=== PATIENT | male | born 1955 | race Two or more races ===

== ENCOUNTER 2024-11-28 15:47 | Emergency (ER) | payer BC, MEDICARE, SELFPAY ==
[2024-11-28 16:28] VITALS: BP 161/95; PULSE 105; RESP 18; TEMP 37.1; O2SAT 97; BMI 28.1
--- NOTE | 2024-11-28 16:52 | EDNOTE_ITS ---
<Statement entered by Laney Mcnair MD - 12/06/24 04:32> As co-signing physician, I was present and available for consult prn. I concur with the plan and care as documented by the midlevel provider. ED General RME/HPI General Chief complaint: General Adult/Misc Complain Stated complaint: REQUEST PAIN SHOT IN LOWER BACK FOR PAIN Time Seen by Provider: 11/28/24 16:28 Arrival date/time: 11/28/24 15:47 This is a 69-year-old male that comes with complaints of lower back pain. Patient states his pain is not new. Patient reports that this pain is chronic. Patient reports that he was recently seen by his pain management doctor but they did not put the prescriptions for his chronic pain medications and. Patient states that he did not have a fall and this is not new pain this is just the pain he usually gets. He came to the emergency room today for a pain shot and he will follow-up with his pain management doctor. Pt denies loss of bowel or bladdder control Related Data Home Medications ?Medication ?Instructions ?Recorded ?Confirmed hydrocodone 5 mg-acetaminophen 325 1 tab PO DAILY 07/0509/21/22 mg tablet ([place]) oxycodone myristate 18 mg capsule 18 mg PO BID 1 09/21/22 sprinkle extended release 12hr(DON'T CRUSH) (Xtampza ER) tamsulosin 0.4 mg capsule 0.4 mg PO QHS 03/16/2109/21 Previous Rx's ?Medication ?Instructions ?Recorded diclofenac sodium 1 % topical gel 2 g topical QID #30 grams 08/25/22 apixaban 5 mg (74 tabs) tablets in 5 mg PO BID Pulmona ry embolism #74 09/24/22 a dose pack (Eliquis DVT-PE Treat tabs 30D Start) Allergies Allergy/AdvReac Type Severity Reaction Status Date / Time ibuprofen Allergy Intermediate IRRITATE Verified 11/28/24 15:49 STOMACH Review of Systems Review of Systems Systems Reviewed: All systems reviewed, normal except as documented Past Medical History Past Medical History CARDIAC: Positive Cardiac Disorders and Hypertension; Negative Congestive Heart Failure RESPIRATORY: Negative Chronic Obstructive Pulmonary Disease (COPD) or Asthma GENITOURINARY: Negative Renal Disease MUSCULOSKELETAL: Positive Arthritis ENDOCRINE: Negative Diabetes Mellitus Type 1 or Diabetes Mellitus Type 2 HEMATOLOGIC: Negative Sickle Cell Disease OTHER HISTORY: Positive Hospitalization and Falls (Last 09/14/2022); Negative Blood Transfusions or Anesthesia Reactions Social History SMOKING STATUS: Never smoker SUBSTANCE USE: does not use ED Exam General General appearance: Present alert and in no apparent distress Head Head exam: Present atraumatic Eye Eye exam: Present normal appearance, PERRL and EOMI ENT ENT exam: Present normal exam, normal oropharynx and mucous membranes moist Neck Neck exam: Present normal inspection, full ROM and trachea midline Chest Chest inspection: Present normal inspection and symmetric chest wall rise Respiratory Respiratory exam: Present normal lung sounds bilaterally Cardiovascular Cardiovascular exam: Present regular rate and other (cap refill) Abdominal Exam Abdominal exam: Present soft Extremities Exam Extremities exam: Present normal inspection and full ROM Back Exam Back exam: Present normal inspection and full ROM Neurological Exam Neurological exam: Present alert, oriented X3 and CN II-XII intact Psychiatric Psychiatric exam: Present normal affect and normal mood Skin Skin exam: Present warm, dry, intact and normal color Course Quality Measures none Orders Category Date Time Status HYDROmorphone INJ [Dilaudid Inj] Med 11/28/24 16:50 Discontinued 1 mg IM X1 ONE Ketorolac Inj [Toradol Inj] Med 11/28/24 16:51 Discontinued 30 mg IM X1 ONE Metoclopramide Inj [Reglan Inj] Med 11/28/24 16:50 Discontinued 10 mg IM X1 ONE Vital Signs Vital signs: Vital Signs Temperature 98.7 F 11/28/24 16:28 Pulse Rate 105 H 11/28/24 16:28 Respiratory Rate 18 11/28/24 16:28 Blood Pressure 161/95 H 11/28/24 16:28 Pulse Oximetry (%) 97 11/28/24 16:28 Oxygen Delivery Method Room Air 11/28/24 16:28 Discharge Plan Plan Patient Disposition: HOME (Self Care) Patient condition on transfer: Stable Prescriptions/Referrals Prescriptions/Med Rec: No Action Xtampza ER 18 mg cap,sprinkl,ER12hr(DONT CRUSH) 18 mg PO BID Rx Instructions: must administer with a meal/food tamsulosin 0.4 mg capsule 0.4 mg PO QHS Patient Comments: Patient states been off from this medication. hydrocodone-acetaminophen [[place]] 5-325 mg Tablet 1 tab PO DAILY diclofenac sodium 1 % gel 2 g topical QID Qty: 30 0RF Patient Comments: Patient been off. Rx Instructions: apply to single elbow, wrist or hand; for hand includes palm/fingers/back of hand Naren DVT-PE Treat 30D Start 5 mg (74 tabs) tablets,dose pack 5 mg PO BID Qty: 74 0RF Problem List Clinical Impression: Chronic back pain Patient/Caregiver Discharge Instructions Discharge Activity: activity as tolerated Education Materials: ED Chronic Pain Additional Instructions: Follow up with primary provider in 1-2 days. Come back to ED if symptoms change or worsen Print Language: Yoruba Stand Alone Forms: Luz Award Info., Patient Portal Info Letter PA/GUTTER MOUTH CUTTER Supervising Physician PA/GUTTER MOUTH CUTTER Supervising Physician: kristian [place] Patient Acuity Narrative: Patient denies any numbness tingling loss of bowel or bladder control. Will medicate with Dilaudid Toradol and Reglan. Patient told to follow-up with primary provider in 1 to 2 days. Patient comfortable plan of care. Clinical Information Provided by: patient Medical Records reviewed [facility] Meds/Rx considered, not ordered None Labs/Rad/Tests considered, not ordered None Chronic Illness/Social Conditions which may negatively complicate care or outcome(s)-explain: other (see hpi) EKG EKG not done Labs Labs: none Imaging Imaging interpretation: none or see narrative above Medication Administration(s) none Medication Administration History Discontinued Medications Hydromorphone HCl (Hydromorphone Inj 2 Mg/Ml Vial) 1 mg IM X1 ONE Stop: 11/28/24 16:51 Last Admin: 11/28/24 17:48 Dose: 1 mg Documented By: NOVA Ketorolac Tromethamine (Ketorolac Inj 60 Mg/2 Ml Vial) 30 mg IM X1 ONE Stop: 11/28/24 16:52 Last Admin: 11/28/24 17:48 Dose: 30 mg Documented By: NOVA Metoclopramide HCl (Metoclopramide Inj 5 Mg/Ml Vial 2 Ml) 10 mg IM X1 ONE; Protocol Stop: 11/28/24 16:51 Last Admin: 11/28/24 17:47 Dose: 10 mg Documented By: NOVA Diagnosis Differential Diagnosis ED Complaint MDM: chronic back pain, uti
[2024-11-28] MEDS: METOCLOPRAMIDE INJ 5 MG/ML VIAL 2 ML 10 MG IM (17:47)
[2024-11-28] MEDS: KETOROLAC INJ 60 MG/2 ML VIAL 30 MG IM (17:48)
[2024-11-28] MEDS: HYDROmorphone INJ 2 MG/ML VIAL 1 MG IM (17:48)
== END 2024-11-28 17:57 | disposition home or self-care (01) ==
PROVIDERS: Emergency Provider Emergency Medicine
DX: M54.50 Low back pain, unspecified (principal); G89.29 Other chronic pain
CPT/HCPCS: 96372; 99284; J1885; J2765; J3490